=== PATIENT | female | born 1975 | race Caucasian/White ===

== ENCOUNTER 2021-12-10 09:06 | Inpatient (IN) | payer BC ==
[2021-12-10] MEDS ORDERED: Acetaminophen 325 MG Tab PO PRN (13:00)
[2021-12-10] MEDS ORDERED: Furosemide 40 MG/4 ML VIAL IVPUSH ONE ×3 (13:08→13:33)
[2021-12-10] MEDS ORDERED: cefTRIAXone 1 GM in Sodium Chloride 0.9% 100 ML IV SCH (13:15)
[2021-12-10] MEDS ORDERED: Sodium Chloride 3% 500 ML IV SCH (13:15)
[2021-12-10] MEDS ORDERED: Sodium Chloride 3% 100 ML IV ONE (14:00)
== END 2021-12-10 16:30 | DRG 426 ==
LOC: JD.FAMPRAC 09:06 → JD.ICU 12:27
PROVIDERS: ADMIT Family Medicine; ATTEND Family Medicine
DX: E87.1 Hypo-osmolality and hyponatremia (principal); F17.210 Nicotine dependence, cigarettes, uncomplicated; I50.9 Heart failure, unspecified; D75.1 Secondary polycythemia; N39.0 Urinary tract infection, site not specified; Z20.822 Contact with and (suspected) exposure to COVID-19; N04.9 Nephrotic syndrome with unspecified morphologic changes; G50.0 Trigeminal neuralgia; G62.9 Polyneuropathy, unspecified; Z88.8 Allergy status to other drugs, medicaments and biological substances
CPT/HCPCS: 36415; 71046; 71046-26; 80053; 81001; 82570; 83880; 84145; 84156; 84443; 84484; 85025; 87040; 87086; 87088; 87186; 93306; J0696; J1940; J7131; U0002

== ENCOUNTER 2023-12-25 12:28 | Inpatient (IN) | payer BC ==
[~2023-12-25 12:28] MED LIST: Enoxaparin 40 MG/0.4 ML Syringe SUBCUT SCH
[2023-12-25] MEDS ORDERED: Sodium Chloride 0.9% 10 ML Syringe FLUSH PRN (12:51)
[2023-12-25] MEDS ORDERED: Albuterol/Ipratropium 3.0-0.5 MG/3 ML Neb Soln NEB ONE (12:56)
[2023-12-25] MEDS ORDERED: methylPREDNISolone Sodium Succinate 125 MG/2 ML SDV IVPUSH ONE (12:57)
[2023-12-25 13:16] LABS: BASOPHILS PERCENT AUTO 0.4 % (0.0-1.0); EOSINOPHILS ABSOLUTE AUTO 0.2 K/mm3 (0.0-0.4); EOSINOPHILS PERCENT AUTO 1.6 % (0.0-6.0); HEMATOCRIT 42.1 % (37.0-47.0); HEMOGLOBIN 12.7 gm/dl (12.0-16.0); IMMATURE GRAN ABSOLUTE AUTO 0.03 K/mm3 (0.00-0.05); IMMATURE GRAN PERCENT AUTO 0.3 % (0.0-0.4); LYMPHOCYTES ABSOLUTE AUTO 1.4 K/mm3 (1.0-4.8); LYMPHOCYTES PERCENT AUTO 13.8 % (24.0-44.0); MEAN CORPUSCULAR HEMOGLOBIN 29.1 pg (28.0-32.0); MEAN CORPUSCULAR HGB CONC 30.2 g/dl (32.0-36.0); MEAN CORPUSCULAR VOLUME 96.6 fl (83.0-99.0); MEAN PLATELET VOLUME 8.8 fl (9.4-12.3); MONOCYTES ABSOLUTE AUTO 1.1 K/mm3 (0.0-0.8); MONOCYTES PERCENT AUTO 10.9 % (0.0-8.0); NEUTROPHILS ABSOLUTE AUTO 7.5 K/mm3 (1.8-7.7); PLATELET COUNT,PLT 340 K/mm3 (150-400); RED BLOOD CELL COUNT 4.36 M/mm3 (4.10-5.30); WHITE BLOOD CELL COUNT,WBC 10.26 K/mm3 (3.9-11.3)
[2023-12-25 13:44] LABS: A/G RATIO 0.6 (1-2); ALBUMIN 2.6 g/dl (3.4-5.0); ANION GAP 6.5 (5-15); BILIRUBIN TOTAL 0.4 mg/dL (0.2-1.0); BUN/CREATININE RATIO 24.3 (14-18); CALCIUM 9.3 mg/dL (8.5-10.1); CREATININE 0.7 mg/dL (0.55-1.02); EST CRCL DRUG DOSING (CG) 62.35 mL/min; POTASSIUM,K 4.5 mEq/L (3.5-5.1); PROTEIN TOTAL,TP 7.2 g/dl (6.4-8.2)
[2023-12-25 13:53] LABS: PCO2 ARTERIAL 68.7 mmHg (35.0-45.0)
[2023-12-25 13:54] LABS: BICARBONATE,ARTERIAL 42.9 meq/L (22.0-26.0)
[2023-12-25] MEDS ORDERED: Ondansetron 4 MG/2 ML SDV IV PRN (15:00)
[2023-12-25] MEDS ORDERED: Docusate Sodium 100 MG Cap PO PRN (15:00)
[2023-12-25] MEDS ORDERED: Acetaminophen 325 MG Tab PO PRN (15:00)
[2023-12-25] MEDS ORDERED: Albuterol 0.083% 2.5 MG/3 ML Neb Soln NEB PRN (15:00)
[2023-12-25] MEDS ORDERED: Magnesium Sulfate/Water 2 GM in Premix Bag 1 BAG IV ONE (15:54)
[2023-12-25] MEDS: Albuterol/Ipratropium 3.0-0.5 MG/3 ML Neb Soln NEB SCH ×2 (16:08→20:55)
[2023-12-25 16:24] LABS: CORONAVIRUS COVID-19 NAA NEGATIVE (NEGATIVE)
[2023-12-25 17:05] LABS: INFLUENZA A NAA NEGATIVE (NEGATIVE); RESPIRATORY SYNCYTIAL VIR NAA NEGATIVE (NEGATIVE)
[2023-12-25] MEDS: Azithromycin 500 MG in Sodium Chloride 0.9% 250 ML IV SCH (18:00)
[2023-12-25] MEDS: Metoprolol Tartrate 50 MG Tab PO SCH (20:00)
[2023-12-25] MEDS: Montelukast 10 MG Tab PO SCH (20:00)
[2023-12-25] MEDS: methylPREDNISolone Sodium Succinate 40 MG/1 ML SDV IVPUSH SCH (20:02)
[2023-12-25] MEDS ORDERED: Montelukast 10 MG Tab PO SCH (21:00)
[2023-12-25] MEDS ORDERED: Metoprolol Tartrate 50 MG Tab PO SCH (21:00)
[2023-12-25] MEDS ORDERED: Sildenafil 20 MG Tab PO SCH (21:00)
[2023-12-26 05:39] LABS: BASOPHILS PERCENT AUTO 0.1 % (0.0-1.0); HEMATOCRIT 35.7 % (37.0-47.0); IMMATURE GRAN ABSOLUTE AUTO 0.06 K/mm3 (0.00-0.05); IMMATURE GRAN PERCENT AUTO 0.5 % (0.0-0.4); LYMPHOCYTES PERCENT AUTO 7.9 % (24.0-44.0); MEAN CORPUSCULAR HEMOGLOBIN 29.4 pg (28.0-32.0); MEAN CORPUSCULAR HGB CONC 31.1 g/dl (32.0-36.0); MEAN CORPUSCULAR VOLUME 94.4 fl (83.0-99.0); MEAN PLATELET VOLUME 9.3 fl (9.4-12.3); MONOCYTES ABSOLUTE AUTO 0.5 K/mm3 (0.0-0.8); MONOCYTES PERCENT AUTO 4.2 % (0.0-8.0); NEUTROPHILS ABSOLUTE AUTO 11.4 K/mm3 (1.8-7.7); NEUTROPHILS PERCENT AUTO 87.3 % (41.0-71.0); PLATELET COUNT,PLT 316 K/mm3 (150-400); RED BLOOD CELL COUNT 3.78 M/mm3 (4.10-5.30)
[2023-12-26 05:52] LABS: HEMOGLOBIN 11.1 gm/dl (12.0-16.0)
[2023-12-26 06:04] LABS: A/G RATIO 0.5 (1-2); ALBUMIN 2.2 g/dl (3.4-5.0); ANION GAP 7.1 (5-15); BILIRUBIN TOTAL 0.3 mg/dL (0.2-1.0); CALCIUM 8.8 mg/dL (8.5-10.1); CREATININE 0.6 mg/dL (0.55-1.02); EST CRCL DRUG DOSING (CG) 73.18 mL/min; MAGNESIUM 2.2 mg/dL (1.8-2.4); POTASSIUM,K 4.1 mEq/L (3.5-5.1); PROTEIN TOTAL,TP 6.3 g/dl (6.4-8.2)
[2023-12-26] MEDS: Albuterol/Ipratropium 3.0-0.5 MG/3 ML Neb Soln NEB SCH ×4 (06:32→20:48)
[2023-12-26] MEDS: Pantoprazole 40 MG Tab.CR PO SCH (08:28)
[2023-12-26] MEDS: Furosemide 20 MG Tab PO SCH (08:28)
[2023-12-26] MEDS: methylPREDNISolone Sodium Succinate 40 MG/1 ML SDV IVPUSH SCH ×2 (08:29→20:42)
[2023-12-26] MEDS: Enoxaparin 40 MG/0.4 ML Syringe SUBCUT SCH (08:29)
[2023-12-26] MEDS: Metoprolol Tartrate 25 MG Tab PO SCH (08:29)
[2023-12-26] MEDS: Sildenafil 20 MG Tab **PTOM PO SCH ×3 (08:42→20:42)
[2023-12-26] MEDS ORDERED: Potassium Chloride 20 MEQ Tab.ER PO SCH (09:00)
[2023-12-26] MEDS ORDERED: Furosemide 20 MG Tab PO SCH (09:00)
[2023-12-26] MEDS ORDERED: Metoprolol Tartrate 50 MG Tab PO SCH (09:00)
[2023-12-26] MEDS ORDERED: Pantoprazole 40 MG Tab.CR PO SCH ×2 (09:00)
[2023-12-26] MEDS ORDERED: Non-Formulary Medication 1 Each (Budesonide/Formoterol Fumarate [Symbicort 80-4.5 Mcg Inha IH SCH (09:00)
[2023-12-26] MEDS ORDERED: POTASSIUM CHLORIDE 20 MEQ/15 ML PO SCH (09:00)
[2023-12-26 09:13] LABS: BICARBONATE,ARTERIAL 39.7 meq/L (22.0-26.0); PCO2 ARTERIAL 63.2 mmHg (35.0-45.0)
[2023-12-26] MEDS: Formoterol/Mometasone 100-5 MCG 8.8 GM Inhaler IH SCH (09:41)
[2023-12-26] MEDS: Acetaminophen/HYDROcodone 325-10 MG Tab PO PRN ×2 (10:55→20:41)
[2023-12-26] MEDS ORDERED: Acetaminophen/HYDROcodone 325-10 MG Tab PO SCH (11:00)
[2023-12-26] MEDS: Azithromycin 500 MG in Sodium Chloride 0.9% 250 ML IV SCH (15:22)
[2023-12-26] MEDS: Metoprolol Tartrate 50 MG Tab PO SCH ×2 (18:43→20:47)
[2023-12-26] MEDS: Montelukast 10 MG Tab PO SCH (20:42)
[2023-12-27 05:29] LABS: BASOPHILS PERCENT AUTO 0.1 % (0.0-1.0); HEMATOCRIT 34.2 % (37.0-47.0); HEMOGLOBIN 10.8 gm/dl (12.0-16.0); IMMATURE GRAN ABSOLUTE AUTO 0.04 K/mm3 (0.00-0.05); IMMATURE GRAN PERCENT AUTO 0.3 % (0.0-0.4); LYMPHOCYTES ABSOLUTE AUTO 1.2 K/mm3 (1.0-4.8); LYMPHOCYTES PERCENT AUTO 10.6 % (24.0-44.0); MEAN CORPUSCULAR HEMOGLOBIN 29.3 pg (28.0-32.0); MEAN CORPUSCULAR HGB CONC 31.6 g/dl (32.0-36.0); MEAN CORPUSCULAR VOLUME 92.9 fl (83.0-99.0); MONOCYTES ABSOLUTE AUTO 0.3 K/mm3 (0.0-0.8); MONOCYTES PERCENT AUTO 2.6 % (0.0-8.0); NEUTROPHILS PERCENT AUTO 86.4 % (41.0-71.0); PLATELET COUNT,PLT 263 K/mm3 (150-400); RED BLOOD CELL COUNT 3.68 M/mm3 (4.10-5.30); WHITE BLOOD CELL COUNT,WBC 11.56 K/mm3 (3.9-11.3)
[2023-12-27 05:48] LABS: A/G RATIO 0.6 (1-2); ALBUMIN 2.2 g/dl (3.4-5.0); ANION GAP 8.7 (5-15); BILIRUBIN TOTAL 0.3 mg/dL (0.2-1.0); C-REACTIVE PROTEIN 1.6 mg/dL (<1.0); CALCIUM 8.9 mg/dL (8.5-10.1); CREATININE 0.6 mg/dL (0.55-1.02); EST CRCL DRUG DOSING (CG) 73.09 mL/min; POTASSIUM,K 4.7 mEq/L (3.5-5.1); PROTEIN TOTAL,TP 6.2 g/dl (6.4-8.2)
[2023-12-27] MEDS: Albuterol/Ipratropium 3.0-0.5 MG/3 ML Neb Soln NEB SCH ×2 (06:44→09:24)
[2023-12-27] MEDS: Enoxaparin 40 MG/0.4 ML Syringe SUBCUT SCH (08:50)
[2023-12-27] MEDS: Furosemide 20 MG Tab PO SCH (08:50)
[2023-12-27] MEDS: methylPREDNISolone Sodium Succinate 40 MG/1 ML SDV IVPUSH SCH (08:50)
[2023-12-27] MEDS: Sildenafil 20 MG Tab **PTOM PO SCH (08:51)
[2023-12-27] MEDS: Pantoprazole 40 MG Tab.CR PO SCH (08:51)
[2023-12-27] MEDS: Metoprolol Tartrate 25 MG Tab PO SCH (08:51)
[2023-12-27] MEDS ORDERED: Potassium Bicarbonate/Cit Ac 20 MEQ Effervescent Tab PO ONE (09:00)
[2023-12-27] MEDS: Formoterol/Mometasone 100-5 MCG 8.8 GM Inhaler IH SCH (09:24)
[2023-12-27] MEDS: Azithromycin 500 MG in Sodium Chloride 0.9% 250 ML IV SCH (10:49)
[2023-12-27] MEDS: Acetaminophen/HYDROcodone 325-10 MG Tab PO PRN (11:41)
== END 2023-12-27 12:25 | disposition home or self-care (01) | DRG 133 ==
LOC: JD.ED 12:28 → JD.ICU 14:31
PROVIDERS: ADMIT Internal Medicine; ATTEND Internal Medicine
DX: J96.21 Acute and chronic respiratory failure with hypoxia (principal); J44.1 Chronic obstructive pulmonary disease with (acute) exacerbation; J96.02 Acute respiratory failure with hypercapnia; I50.9 Heart failure, unspecified; G62.9 Polyneuropathy, unspecified; I27.20 Pulmonary hypertension, unspecified; R64 Cachexia; E88.09 Other disorders of plasma-protein metabolism, not elsewhere classified; Z88.8 Allergy status to other drugs, medicaments and biological substances; Z99.89 Dependence on other enabling machines and devices; Z99.81 Dependence on supplemental oxygen; Z79.899 Other long term (current) drug therapy; Z87.891 Personal history of nicotine dependence; Z91.198 Patient's noncompliance with other medical treatment and regimen for other reason; Z11.52 Encounter for screening for COVID-19
CPT/HCPCS: 0241U; 36415; 36600; 71045; 71045-26; 80053; 82803; 83735; 84100; 84484; 85025; 85379; 86140; 87040; 94640; 94660; 94667; 94668; 99285; A9270-GY; J0456; J1650; J2920; J2930; J3475; J3490; J7050; J7620-GY